=== PATIENT | female | born 1970 | race Caucasian/White ===

== ENCOUNTER 2021-01-01 11:33 | Emergency (ER) | payer BC, OTHER ==
[2021-01-01 11:42] VITALS: BMI 49.8
[2021-01-01] MEDS ORDERED: LACTATED RINGERS SOLUTION 1000 ML INFUS.BAG IV ONE (11:58)
[2021-01-01] MEDS ORDERED: dilTIAZem HCL 50 MG/10 ML - 10 ML VIAL IVPUSH ONE (12:30)
[2021-01-01] MEDS ORDERED: dilTIAZem HCL 125 MG/25 ML - 25 ML VIAL ONE (12:32)
[2021-01-01 12:44] LABS: BASO % 0.6 % (0-2.0); EOS % 0.3 % (0-4.5); HEMATOCRIT 39.9 % (32.4-45.2); HEMOGLOBIN 13.4 GM/dL (10.7-15.3); LYMPH % 22.8 % (8-40); MCH 27.6 pg (25.7-33.7); MCHC 33.6 g/dl (32.0-36.0); MEAN CELL VOLUME 82.3 fl (80-96); MEAN PLT VOLUME 8.6 fl (7.5-11.1); MONO % 8.8 % (3.8-10.2); NEUT % 67.5 % (42.8-82.8); PLATELET COUNT 442 K/MM3 (134-434); RBC 4.85 M/mm3 (3.60-5.2); RDW 14.7 % (11.6-15.6); WHITE BLOOD COUNT 12.2 K/mm3 (4.0-10.0)
[2021-01-01] MEDS ORDERED: dilTIAZem HCL 60 MG TABLET PO ONE (12:48)
[2021-01-01] MEDS ORDERED: dilTIAZem HCL 60 MG TABLET ONE (12:54)
[2021-01-01 13:07] LABS: CHLORIDE 102 mmol/L (98-107); POTASSIUM 3.7 mmol/L (3.5-5.1); SODIUM 138 mmol/L (136-145)
[2021-01-01 13:09] LABS: ALBUMIN 3.9 g/dl (3.4-5.0); ANION GAP 9 MMOL/L (8-16); CALCIUM 9.2 mg/dL (8.5-10.1); CO2 28 mmol/L (21-32)
[2021-01-01 13:10] LABS: BLOOD UREA NITROGEN 19.1 mg/dL (7-18); GLUCOSE,RANDOM 113 mg/dL (74-106); MAGNESIUM 2.4 mg/dL (1.8-2.4)
[2021-01-01 13:13] LABS: PHOSPHOROUS 2.8 mg/dL (2.5-4.9); SGOT/AST 10 U/L (15-37); SGPT/ALT 21 U/L (13-61)
[2021-01-01 13:14] LABS: BILIRUBIN,TOTAL 0.4 mg/dL (0.2-1); TOT PROT 7.9 g/dl (6.4-8.2)
[2021-01-01 13:15] LABS: ALK PHOS 70 U/L (45-117)
[2021-01-01 13:53] LABS: INR 0.96 (0.83-1.09); PROTHROMBIN TIME (PATIENT) 11.8 SEC (9.7-13.0)
[2021-01-01 15:15] VITALS: TEMP 98
[2021-01-02 10:57] VITALS: BP 121/78; PULSE 96
== END 2021-01-01 15:20 | disposition home or self-care (01) ==
LOC: JER 11:33
PROC: 3E033GC Introduction of Other Therapeutic Substance into Peripheral Vein, Percutaneous Approach (ICD-10-PCS; principal; 2021-01-01)
DX: I48.91 Unspecified atrial fibrillation (principal); R06.02 Shortness of breath
CPT/HCPCS: 36415; 71045-TC-FY; 80053; 83735; 84100; 84484; 84703; 85025; 85610; 85730; 93005; 93010; 99285-25